=== PATIENT | female | born 1995 | race Hispanic/Latino ===

== ENCOUNTER 2017-11-12 10:57 | Emergency (ER) | payer OTHER ==
[2017-11-12 11:03] VITALS: BP 123/75; PULSE 122; RESP 18; TEMP 98.8; O2SAT 95
[2017-11-12] MEDS ORDERED: Silver Sulfadiazine 1% Cream (20 gm) TOP STA (11:26)
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
[2017-11-12] MEDS ORDERED: Silver Sulfadiazine 1% Cream (20 gm) ONE (11:53)
== END 2017-11-12 12:15 | disposition home or self-care (01) ==
LOC: C.ER 10:57
DX: T22.211A Burn of second degree of right forearm, initial encounter (principal); X10.0XXA Contact with hot drinks, initial encounter